=== PATIENT | male | born 1955 | race Two or more races ===

== ENCOUNTER 2023-02-28 15:32 | Emergency (ER) | payer OTHER ==
[~2023-02-28] VITALS: Ht 170.2 cm; Wt 73.0 kg
[2023-02-28] MEDS ORDERED: ZESTRIL40 M1 (15:40)
== END 2023-02-28 17:52 | disposition home or self-care (01) ==
LOC: ER 15:32
DX: H61.21 Impacted cerumen, right ear (principal)